=== PATIENT | male | born 1940 | race Caucasian/White ===

== ENCOUNTER → 2016-11-13 | Day surgery (SDC) | payer OTHER ==
[2016-10-30 13:06] VITALS: Ht 165.1 cm; Wt 72.7 kg
[~2016-11-13] VITALS: Ht 165.1 cm; Wt 72.7 kg
[~2016-11-13] MED LIST: 500ML BSSPLUS 0.5ML EPI1:1000 IRRIG ONE; ACETAMINOPHEN 325 MG TAB PO PRN; ATEN-173 PO; ATOR10TA88 PO; ATROPINE SULFATE 0.1 MG/ML 5ML SYR IV PRN; ATROPINE SULFATE 1% OP OINT PER APPLICATION CHARGE ONE; BSS FLUSH ONE; BUPIVACAINE HCL 0.75% 10 ML AMP/VIAL ONE; CEFAZOLIN SOD 1 GM VIAL ONE; CPR/500 PO; CZR25 PO; DEXAMETHASONE SOD INJ 4 MG/ML VIAL ONE; EPP3/2 IM; EpHEDrine SULFATE INJ 50 MG/ML AMP IV PRN; EpINEphrine INJ 1MG/ML AMP 1 MG/ML AMP ONE; FLM4 PO; HYALURONIDASE HUMAN 150 UNIT/ML INJ ONE; HYDR25TA4 PO; HYDR25TA5 PO; INDOCYANINE GREEN 25 MG/10 ML ONE; LACTATED RINGER'S 1000ML 500 ML IV SCH; LIDOCAINE HCL 2% 2 ML VIAL (20MG/ML) ONE; LIDOCAINE MPF 4% INJ INJ ONE; LPT40 PO; NEOMYCIN/POLYMYX/DEXAMETH OP OINT PER APP CHARGE ONE; OCUCOAT 1 ML SOLN IO ONE; PHENYLEPHRINE HCL 10% OP SOLN PER DROP CHARGE ONE; PLV75 PO; PROPARACAINE 0.5% OP SOLN PER DROP CHARGE OPL SCH; PROPOFOL IV EMULSION 10 MG/ML 20 ML VIAL IV ONE; RANI150T2 PO; RANI150T3 PO; TADA5TAB11 PO; TIMOLOL MALEATE 0.5% OP SOLN PER DROP CHARGE ONE; TNR25 PO
[2016-11-13] MEDS: PHENYLEPHRINE HCL 2.5% OP SOLN PER DROP CHARGE OPL SCH ×2 (06:47→06:52)
[2016-11-13] MEDS: TROPICAMIDE 1% OP SOLN PER DROP CHARGE OPL SCH ×2 (06:48→06:53)
--- NOTE | 2016-11-13 06:59 | History & Physical Bridge - [place] ---
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 I have examined the patient, reviewed the History & Physical and in the interval since the performance of the History & Physical I have noted the following changes of clinical significance: No changes noted
--- NOTE | 2016-11-13 08:06 | [facility] Operative Report ---
Operative Report Date of Service Nov 13, 2016. Operative Report PREOPERATIVE DIAGNOSIS: Epiretinal membrane, left eye. ICD10: H35.372 POSTOPERATIVE DIAGNOSIS: same. PROCEDURE: 1. Pars plana vitrectomy, 23 gauge. 2. Membrane peeling of the internal limiting membrane and overlying epiretinal membrane. All to the left eye. CPT CODE: 64109 SURGEON: Curly Brown D.O. COMPLICATIONS: None. ESTIMATED BLOOD LOSS: None. SPECIMENS: None. ANESTHESIA: Retrobulbar block and MAC. INDICATIONS FOR PROCEDURE: The patient has an epiretinal membrane that is visually significant. Vitrectomy surgery is indicated to decrease risk of vision loss and potentially improve vision. CONSENT: The risks, benefits and alternatives were discussed with the patient including but not limited to decreased visual acuity, failure to achieve desired results, loss of the eye, infection, pain, glaucoma, lens changes, retinal tears, retinal detachment, the need for more procedures, drooping of the eyelid, blindness, and double vision. The patient is aware of risks and consents to the surgery. Consent is signed and on the chart. OPERATION AND FINDINGS: The patient was brought to the operating room where the patient was identified by name, date, and medical record number. The surgical site was confirmed with the informed written consent. The patient was sedated by the anesthesiology team after which a 50:50 mixture of 4% lidocaine and 0.75% bupivacaine with hyaluronidase was administered in a standard retrobulbar fashion. A total of 4 ml was administered without difficulty. The patient was then prepped and draped in the usual sterile manner for retinal surgery. A wire lid speculum was placed and an Darell 23-gauge trocar cannula system was employed. The inferior temporal trocar cannula was first placed in an angled fashion 3.75mm posterior to the surgical limbus and the infusion cannula was inserted into this cannula after which the intravitreal position was verified prior to turning the infusion on. Two more trocar cannulas were then inserted in an angled fashion, one in the superior temporal, and one in the superior nasal quadrant both 3.75mm posterior to the surgical limbus. A light pipe and vitrector were then introduced into the eye and the BIOM wide angle viewing system was brought into place. Standard core vitrectomy was performed the vitreous was insured to be totally detached from the posterior pole with the aid of the vitrector. Next 0.05ml of indocyanine green was placed over the macular surface to stain the internal limiting membrane. This was washed from the eye after 10 seconds. At this point a flat contact lens was placed on the surface of the eye and a flex scraper and ILM forceps were used to gently peel the internal limiting membrane and overlying epiretinal membrane off of the macular surface without difficulty. At this point scleral depression was performed for 360 degrees and no retinal tears or detachments were noted. The trocar cannulas were then removed and found to be water tight. The intraocular pressure was found to be within normal limits by palpation and subconjunctival injections of Kefzol and dexamethasone were administered inferiorly and superiorly. The wire lid speculum was removed. Maxitrol was applied to the surface of the eye. A light patch and shield were taped over the surface of the eye and the patient left the Operating Room in stable condition having tolerated the procedure well. DISPOSITION: The patient has an appointment the following morning in the Ophthalmology Clinic. The patient is to call immediately if there are any problems overnight. I attest to the content of the Intraoperative Record and any orders documented therein. Any exceptions are noted below.
[2016-11-13 08:07] VITALS: TEMP 36.7
--- NOTE | 2016-11-13 08:08 | Discharge Instructions-SurgCtr ---
Discharge Instructions Date of Service Nov 13, 2016. Visit Reason for Visit: Left Eye Epiretinal Membrane Discharge Discharge Diagnosis / Problem: same Discharge Goals Goal(s): Improve function Activity Recommendations Activity Limitations: per Instructions/Follow-up section Anesthesia . Post Anesthesia Instructions: If you have had General Anesthesia or IV Sedation: * Do not drive today. * Resume driving when surgeon permits. * Do not make important decisions or sign legal documents today. * Call surgeon for: 1. Temperature elevations greater than 101 degrees F. 2. Uncontrollable pain. 3. Excessive bleeding. 4. Persistent nausea and vomiting. 5. Medication intolerance (nausea, vomiting or rash). * For nausea and vomiting use only clear liquids such as: tea, soda, bouillon until nausea subsides, then gradually increase diet as tolerated. * If you have any concerns or questions, call your surgeon's office. If physician is unavailable and it is an emergency, call 911 or go to the nearest emergency room. . Instructions / Follow-Up Instructions / Follow-Up * May take Tylenol if needed for discomfort. * Do NOT remove eye shield. * NO straining, heavy lifting (>15 pounds) or bending below waist. * Avoid getting water or soap directly into operative eye. * Do NOT rub eye. If you experience increasing eye pain not relieved by medication, please contact us immediately at [phone]. If you are unable to reach someone at the above number, call [phone] and ask to speak with the EYE DOCTOR [employer]ACE REHABILITATION OFFICER. Inform them that you are a Dr. Brown patient who had recent surgery. Diet Recommendations Home Diet: resume previous diet Procedures Procedures Performed: Left Eye 23 Gauge Vitrectomy With Membrane Peeling Pending Studies Studies pending at discharge: no Medical Emergencies . Who to Call and When: Medical Emergencies: If at any time you feel your situation is an emergency, please call 911 immediately. . Non-Emergent Contact Non-Emergency issues call your: Inventory Associate . . "Provider Documentation" section prepared by Curly Brown.
[2016-11-13 08:34] VITALS: BP 149/81; PULSE 48; O2SAT 96
--- NOTE | 2016-11-13 08:40 | Anesthesia Progress Nt - [facility] ---
Anesthesia Post Op Note Date & Time Nov 13, 2016 at 08:40 Vital Signs Pain Intensity: 0 Vital Signs Past 12 Hours Date Time Temp Pulse Resp B/P Pulse Ox O2 Delivery O2 Flow Rate FiO2 11/13/16 08:34 48 18 149/81 96 Room Air 11/13/16 08:07 36.7 50 18 164/67 98 Room Air 11/13/16 06:38 36.6 52 16 174/74 96 Room Air Notes Mental Status: alert / awake / arousable, participated in evaluation Pt Amnestic to Procedure: Yes Nausea / Vomiting: adequately controlled Pain: adequately controlled Airway Patency, RR, SpO2: stable & adequate BP & HR: stable & adequate Hydration State: stable & adequate Anesthetic Complications: no major complications apparent
== END | disposition home or self-care (01) ==
LOC: X.SURG 06:23
PROVIDERS: ATTEND Ophthalmology
DX: H35.372 Puckering of macula, left eye (principal); I12.9 Hypertensive chronic kidney disease with stage 1 through stage 4 chronic kidney disease, or unspecified chronic kidney disease; E78.5 Hyperlipidemia, unspecified; K21.9 Gastro-esophageal reflux disease without esophagitis; N40.0 Benign prostatic hyperplasia without lower urinary tract symptoms; N18.3 Chronic kidney disease, stage 3 (moderate)

== ENCOUNTER 2017-02-23 15:30 | Emergency (ER) | payer OTHER ==
[~2017-02-23] VITALS: Ht 167.6 cm; Wt 77.7 kg
[~2017-02-23 15:30] MED LIST changes: -500ML BSSPLUS 0.5ML EPI1:1000 IRRIG ONE; -ACETAMINOPHEN 325 MG TAB PO PRN; -ATROPINE SULFATE 0.1 MG/ML 5ML SYR IV PRN; -ATROPINE SULFATE 1% OP OINT PER APPLICATION CHARGE ONE; -BSS FLUSH ONE; -BUPIVACAINE HCL 0.75% 10 ML AMP/VIAL ONE; -CEFAZOLIN SOD 1 GM VIAL ONE; -CPR/500 PO; -CZR25 PO; -DEXAMETHASONE SOD INJ 4 MG/ML VIAL ONE; -EPP3/2 IM; -EpHEDrine SULFATE INJ 50 MG/ML AMP IV PRN; -EpINEphrine INJ 1MG/ML AMP 1 MG/ML AMP ONE; -FLM4 PO; -HYALURONIDASE HUMAN 150 UNIT/ML INJ ONE; -HYDR25TA5 PO; -INDOCYANINE GREEN 25 MG/10 ML ONE; -LACTATED RINGER'S 1000ML 500 ML IV SCH; -LIDOCAINE HCL 2% 2 ML VIAL (20MG/ML) ONE; -LIDOCAINE MPF 4% INJ INJ ONE; -LPT40 PO; -NEOMYCIN/POLYMYX/DEXAMETH OP OINT PER APP CHARGE ONE; -OCUCOAT 1 ML SOLN IO ONE; -PHENYLEPHRINE HCL 10% OP SOLN PER DROP CHARGE ONE; -PLV75 PO; -PROPARACAINE 0.5% OP SOLN PER DROP CHARGE OPL SCH; -PROPOFOL IV EMULSION 10 MG/ML 20 ML VIAL IV ONE; -RANI150T2 PO; -TIMOLOL MALEATE 0.5% OP SOLN PER DROP CHARGE ONE; -TNR25 PO
[2017-02-23 15:33] VITALS: TEMP 36.4; Ht 167.6 cm; Wt 77.7 kg
[2017-02-23] MEDS ORDERED: PLV75 PO (16:19)
[2017-02-23] MEDS ORDERED: FLM4 PO (16:19)
[2017-02-23] MEDS ORDERED: RANI150T2 PO (16:19)
[2017-02-23] MEDS ORDERED: TNR25 PO (16:19)
[2017-02-23] MEDS ORDERED: HYDR25TA5 PO (16:19)
[2017-02-23] MEDS ORDERED: CPR/500 PO (16:19)
[2017-02-23] MEDS ORDERED: CZR25 PO (16:19)
[2017-02-23] MEDS ORDERED: LPT40 PO (16:19)
[2017-02-23] MEDS ORDERED: EPP3/2 IM (16:19)
[2017-02-23 16:32] LABS: MANUAL MICROSCOPIC REQUIRED? NO; REVIEW REQ? NO; URINE APPEARANCE CLEAR (CLEAR); URINE BILIRUBIN NEG (NEG); URINE COLOR YELLOW; URINE EPITHELIAL CELL AUTO 0-5 /lpf (0-5); URINE NITRITE NEG (NEG); URINE SPECIFIC GRAVITY 1.019 (1.000-1.030); UROBILINOGEN NEG (NEG); ZZURINE CULT IF INDIC CATH NO
[2017-02-23 17:16] VITALS: BP 149/83; PULSE 68; O2SAT 95
--- NOTE | 2017-02-23 23:12 | EMERGENCY ROOM VISIT NOTE ---
History Report prepared by Yovani: Darian Luna Under the Supervision of: Dr. Brian Lees D.O. First contact with patient: 15:38 Chief Complaint: UNABLE TO VOID Stated Complaint: UNABLE TO VOID History of Present Illness The patient is a 76 year old male who presents to the Emergency Room with complaints of a persistent inability to urinate that started 2 days ago. He says that he had a carotid artery operation at [facility] 2 days ago. The patient had a catheter in until late during the day of the operation, and ever since then, he has only been able to urinate a few drops at a time. The patient was sent home today. He says that he has had an urge to urinate, and currently, he feels like he really needs to go. During the afternoon after the operation, the patient says that he was able to urinate with the catheter, and had 330 milliliters of liquid. The catheter was then taken out. The patient notes that he feels okay other than his abdominal fullness. He denies any abdominal pain. He has no chest pain, shortness breath, nausea vomiting or diarrhea. Source of History: patient Onset: 2 days ago Position: other (global - inability to urinate) Symptom Intensity: only a few drops at a time Timing: other (persistent) Associated Symptoms: No abdominal pain Note: Associated symptoms: Abdominal fullness. Review of Systems See HPI for pertinent positives & negatives. A total of 10 systems reviewed and were otherwise negative. Past Medical & Surgical Medical Problems: (1) Hypertension Family History Heart disease Social History Smoking Status: Never Smoker Marital Status: Housing Status: lives with family Occupation Status: employed Current/Historical Medications Scheduled Atenolol (Atenolol), 25 MG PO DAILY Atorvastatin (Atorvastatin Calcium), 40 MG PO DAILY Ciprofloxacin (Ciprofloxacin HCl), 500 MG PO BID Clopidogrel Bisulfate (Clopidogrel), 75 MG PO DAILY Hydrochlorothiazide (Hydrochlorothiazide), 25 MG PO DAILY Losartan Potassium (Losartan Potassium), 25 MG PO DAILY Ranitidine HCl (Ranitidine HCl), 150 MG PO BID Tadalafil (Cialis), 5 MG PO QAM Tamsulosin HCl (Tamsulosin HCl), 0.4 MG PO DAILY Scheduled PRN Epinephrine (Epipen), 0.3 MG IM UD PRN for ALLERGIC REACTION Allergies Coded Allergies: Aspirin (Verified Allergy, Severe, ANAPHYLAXIS, 3/20/17) Pineapple (Verified Allergy, Unknown, ., 11/13/16) Shellfish (Verified Allergy, Unknown, SWELLING TONGUE, 11/13/16) Physical Exam Vital Signs Date Time Temp Pulse Resp B/P (MAP) Pulse Ox O2 Delivery O2 Flow Rate FiO2 02/23/17 17:16 68 16 149/83 95 02/23/17 15:33 36.4 74 18 193/73 98 Room Air Physical Exam GENERAL: sitting up in bed, uncomfortable, holding lower abdomen EYE EXAM: normal conjunctiva OROPHARYNX: no exudate, no erythema, lips, buccal mucosa, and tongue normal and mucous membranes are moist NECK: supple, no nuchal rigidity, no adenopathy, non-tender LUNGS: Clear to auscultation. Normal chest wall mechanics HEART: no murmurs, S1 normal and S2 normal ABDOMEN: abdomen soft, non-tender, normo-active bowel sounds, no masses, no rebound or guarding. BACK: No CVA tenderness. SKIN: no rashes and no bruising UPPER EXTREMITIES: upper extremities are grossly normal. LOWER EXTREMITIES: No pitting edema. NEURO EXAM: Normal sensorium. Medical Decision & Procedures Laboratory Results Test 02/23/17 16:15 Urine Color YELLOW Urine Appearance CLEAR (CLEAR) Urine pH 5.0 (4.5-7.5) Urine Specific [place] 1.019 (1.000-1.030) Urine Protein NEG (NEG) Urine Glucose (UA) TRACE (NEG) Urine Ketones NEG (NEG) Urine Occult Blood 2+ (NEG) Urine Nitrite NEG (NEG) Urine Bilirubin NEG (NEG) Urine Urobilinogen NEG (NEG) Urine Leukocyte Esterase NEG (NEG) Urine WBC (Auto) 1-5 /hpf (0-5) Urine RBC (Auto) >30 /hpf (0-4) Urine Hyaline Casts (Auto) 1-5 /lpf (0-5) Urine Epithelial Cells (Auto) 0-5 /lpf (0-5) Urine Bacteria (Auto) NEG (NEG) Laboratory results per my review. ED Course ED COURSE: Vital signs were reviewed and showed hypertensive vitals. The patients medical record was reviewed The above diagnostic studies were performed and reviewed. ED treatments and interventions as stated above. 1539: The patient was evaluated in room B11B. A complete history and physical examination was performed. 1606: I reevaluated the patient and he has put out 500 ml's of urine so far. 1656: Upon reevaluation, the patient is feeling completely better and currently taking Cipro. I discussed my findings with the patient and he understands and agrees with the treatment plan. Based on the patients age, coexisting illnesses, exam and lab findings the decision to treat as an outpatient was made. The patient remained stable while under my care. The patient appeared well at the time of discharge. Medical Decision Differential diagnoses includes but is not limited to gastritis, peptic ulcer disease, GERD, gallbladder disease, pancreatitis, small bowel obstruction, acute coronary syndrome, pericarditis, ischemic bowel, irritable bowel disease, irritable bowel syndrome, appendicitis, diverticulitis, malignancy, hernia, urinary tract infection, torsion, perforation, trauma, infectious. Blood Pressure Screening: The patient was found to have a slightly elevated blood pressure due to circumstances. I do not believe that the patient requires hypertension monitoring. Medication Reconciliation: I attest that I have personally reviewed the patient' s current medication list. Patient is a 76-year-old male who presents the ER following having surgery performed at [facility] and was discharged today. He notes he has been having trouble urinating prior to discharge and he is unable to urinate tonight. No fevers. Bedside ultrasound shows a large distended bladder. Marr was inserted and 550 ML's was removed. He had complete resolution of symptoms. He was discharged to follow-up with either urology or his PCP. We were able to schedule appointment for him with his PCP next Sunday to have the Marr removed if he is unable to get into urology prior to this. He will continue taking his Cipro as previous prescribed by [facility] [place]. Discussed with Pt concerning signs and symptoms to watch out for. Pt was instructed to follow up with their PCP and discussed with the patient their option to return to the ED at anytime for persistent or worsening symptoms. The appropriate anticipatory guidance and out-patient management, including indications for return to the emergency department, were explained at length to the patient and understood. Impression Primary Impression: Urinary retention Scribe Attestation The scribe's documentation has been prepared under my direction and personally reviewed by me in its entirety. I confirm that the note above accurately reflects all work, treatment, procedures, and medical decision making performed by me. Departure Information Dispostion Home / Self-Care Referrals Rufina Zhao DO (PCP) Ester Lazar MD Forms HOME CARE DOCUMENTATION FORM, IMPORTANT VISIT INFORMATION, WORK / SCHOOL INSTRUCTIONS Patient Instructions ED Catheter Care Marr, [facility] Additional Instructions Please follow up with your primary care doctor with in the next 24 hours. Any worsening of your symptoms, please return to the ED immediately. This includes fevers greater than 100.4, Marr is not draining, persistent nausea vomiting, worsening pain, or any other concerning signs or symptoms from your standpoint. Please follow up with your primary care doctor or urology within 3 days for removal of your Marr.
== END 2017-02-23 17:18 | disposition home or self-care (01) ==
LOC: C.EDB 15:32
DX: R33.9 Retention of urine, unspecified (principal); I10 Essential (primary) hypertension; Z82.49 Family history of ischemic heart disease and other diseases of the circulatory system